=== PATIENT | female | born 1980 | race Caucasian/White ===

== ENCOUNTER 2016-12-04 10:25 | Emergency (ER) | payer MEDICAID ==
[~2016-12-04] VITALS: Ht 160 cm; Wt 90.0 kg
[2016-12-04] MEDS ORDERED: ACETAMINOPHEN 325MG TABLET PO ONE (11:15)
[2016-12-04 12:12] LABS: HCG SCREEN NEGATIVE
[2016-12-04 14:12] VITALS: BP 118/74
== END 2016-12-04 14:23 | disposition home or self-care (01) ==
LOC: ER 10:46
DX: S00.83XA Contusion of other part of head, initial encounter (principal); S00.12XA Contusion of left eyelid and periocular area, initial encounter; S80.02XA Contusion of left knee, initial encounter; Y07.01 Husband, perpetrator of maltreatment and neglect; Y04.2XXA Assault by strike against or bumped into by another person, initial encounter; Y93.89 Activity, other specified; Y92.099 Unspecified place in other non-institutional residence as the place of occurrence of the external cause; W01.0XXA Fall on same level from slipping, tripping and stumbling without subsequent striking against object, initial encounter
CPT/HCPCS: 70450; 70486; 73562; 84703; 99285; L1830

== ENCOUNTER 2024-01-05 19:02 | Emergency (ER) | payer MEDICAID, OTHER ==
[~2024-01-05] VITALS: Ht 149.9 cm; Wt 109.0 kg
[2024-01-05 19:03] VITALS: TEMP 98.8; O2SAT 100
[2024-01-05 19:45] LABS: CLARITY URINE CLOUDY (CLEAR); COLOR URINE YELLOW (YELLOW); GLUCOSE URINE NEGATIVE (NEGATIVE); KETONES URINE NEGATIVE (NEGATIVE); LEUKOCYTE ESTERASE URINE 1+ (NEGATIVE); NITRITE URINE NEGATIVE (NEGATIVE); OCCULT BLOOD URINE 1+ (NEGATIVE); PROTEIN URINE NEGATIVE (NEGATIVE); SPECIFIC GRAVITY URINE 1.015 (1.005-1.030); UROBILINOGEN URINE 0.2 E.U./dL (0.2-1.0)
[2024-01-05 20:00] LABS: BACTERIA URINE 1+; RBC URINE 0-2 /hpf (0-2); SQUAMOUS EPITHELIAL CELL URINE 1+ /lpf (RARE/1+)
[2024-01-05 20:00] LABS: BASOPHILS % 0.4 % (0.0-2.0); HEMATOCRIT. 35.9 % (36.0-48.0); HEMOGLOBIN. 12.2 g/dL (12.0-16.0); LYMPHOCYTES % 35.5 % (20.0-50.0); MEAN CORPUSCULAR HEMOGLOBIN 30.2 pg (28.0-32.0); MEAN CORPUSCULAR HGB CONC 34.1 g/dL (31.0-37.0); MEAN CORPUSCULAR VOLUME 88.8 fL (81.0-99.0); MEAN PLATELET VOLUME 9.5 fl (7.4-10.4); MONOCYTES % 8.2 % (2.0-8.0); NEUTROPHILS % 52.9 % (40.0-76.0); PLATELET 295 x1000/uL (130-400); RED BLOOD CELL COUNT 4.05 mill/uL (4.2-5.4); RED CELL DISTRIBUTION WIDTH 16.8 % (11.6-14.6); WHITE BLOOD COUNT 7.9 x1000/uL (4.5-11.0)
[2024-01-05 20:06] LABS: CHLORIDE 106 mEq/L (98-107); POTASSIUM 4.3 mEq/L (3.5-5.1); SODIUM 138 mEq/L (136-145)
[2024-01-05 20:07] LABS: CARBON DIOXIDE 28 mEq/L (21-32)
[2024-01-05 20:08] LABS: CALCIUM 10.1 mg/dL (8.7-10.4)
[2024-01-05 20:12] LABS: CREATININE 0.8 mg/dL (0.6-1.0); GLUCOSE 142 mg/dL (70-105)
[2024-01-05 20:13] LABS: UREA NITROGEN BLOOD 8 mg/dL (9-23)
[2024-01-05 20:14] LABS: ALANINE AMINOTRANSFERASE 39 IU/L (10-49); ALBUMIN 4.5 g/dL (3.2-4.8); ASPARTATE AMINOTRANSFERASE 36 IU/L (<34)
[2024-01-05 20:15] LABS: BILIRUBIN TOTAL 0.4 mg/dL (0.1-1.0); PROTEIN TOTAL 7.2 g/dL (6.0-8.3)
[2024-01-05 20:18] LABS: BILIRUBIN DIRECT < 0.1 mg/dL (<=3.0)
[2024-01-05] MEDS: ONDANSETRON HCL 4MG TABLET PO ONE (20:38)
[2024-01-05 22:57] LABS: HCG SCREEN NEGATIVE
[2024-01-06] VITALS: BP 165/89; PULSE 77; RESP 16; O2SAT 100
[2024-01-06] MEDS ORDERED: OMEP20CA14 MT (00:04)
[2024-01-06] MEDS ORDERED: NAPR-1176 MT (00:04)
== END 2024-01-06 02:38 | disposition home or self-care (01) ==
LOC: ER 19:02
DX: K57.90 Diverticulosis of intestine, part unspecified, without perforation or abscess without bleeding (principal); E11.9 Type 2 diabetes mellitus without complications; I10 Essential (primary) hypertension
CPT/HCPCS: 99284; 74176; 80076; 80048; 81003; 81025; 84703; 83690; 85025; 36415; Q0162